=== PATIENT | female | born 1960 | race Caucasian/White ===

== ENCOUNTER 2023-09-10 07:54 | Emergency (ER) | payer OTHER, SELFPAY ==
[2023-09-10] VITALS (7 sets, daily range): BP systolic 120–139; BP diastolic 54–78; PULSE 66–74; RESP 16–20; TEMP 36.5; O2SAT 94–99; BMI 52.9
--- NOTE | ~2023-09-10 | XR_ITS ---
EXAMINATION: XR SHOULDER, RIGHT CLINICAL INFORMATION: Right shoulder pain COMPARISON: None available. TECHNIQUE: AP sitting: AP external rotation and scapular Y views of the right shoulder. FINDINGS: The humeral head appears to be dislocated from the glenoid fossa. No fracture. There is mild degenerative change of the acromioclavicular joint. XR/XR shoulder RT min 2V IMPRESSION: Dislocated right shoulder.
--- NOTE | ~2023-09-10 | XR_ITS ---
STUDY: Right shoulder, right elbow, right wrist INDICATION: Post reduction right shoulder, right elbow and right hand/wrist pain TECHNIQUE: 2 view right shoulder, single view right elbow, 3 view right wrist FINDINGS: Right shoulder: Limited evaluation due to positioning with swelling in place. There is improved alignment of the anterior inferior dislocated right shoulder. Given study limitations, no displaced fracture recognized. Degenerative changes noted about the acromioclavicular joint. Right elbow: 1 single view provided, no fracture or dislocation. Alignment appears to be maintained. Posterior elbow soft tissue prominence is noted. Right wrist: Pisiform bone appears displaced in an ulnar dorsal direct direction. No fracture recognized. Underlying degenerative change first carpometacarpal joint. XR/XR shoulder RT min 2V IMPRESSION: Interval reduction right shoulder dislocation. When feasible, consider complete shoulder series to assess for integrity of the humeral head. No acute bony pathology single view of the right elbow. Findings suspicious for subluxation or dislocation of the pisiform bone. Correlate clinically, consider CT.
--- NOTE | ~2023-09-10 | XR_ITS ---
STUDY: Right shoulder, right elbow, right wrist INDICATION: Post reduction right shoulder, right elbow and right hand/wrist pain TECHNIQUE: 2 view right shoulder, single view right elbow, 3 view right wrist FINDINGS: Right shoulder: Limited evaluation due to positioning with swelling in place. There is improved alignment of the anterior inferior dislocated right shoulder. Given study limitations, no displaced fracture recognized. Degenerative changes noted about the acromioclavicular joint. Right elbow: 1 single view provided, no fracture or dislocation. Alignment appears to be maintained. Posterior elbow soft tissue prominence is noted. Right wrist: Pisiform bone appears displaced in an ulnar dorsal direct direction. No fracture recognized. Underlying degenerative change first carpometacarpal joint. XR/XR hand wrist RT IMPRESSION: Interval reduction right shoulder dislocation. When feasible, consider complete shoulder series to assess for integrity of the humeral head. No acute bony pathology single view of the right elbow. Findings suspicious for subluxation or dislocation of the pisiform bone. Correlate clinically, consider CT.
--- NOTE | ~2023-09-10 | XR_ITS ---
STUDY: Right shoulder, right elbow, right wrist INDICATION: Post reduction right shoulder, right elbow and right hand/wrist pain TECHNIQUE: 2 view right shoulder, single view right elbow, 3 view right wrist FINDINGS: Right shoulder: Limited evaluation due to positioning with swelling in place. There is improved alignment of the anterior inferior dislocated right shoulder. Given study limitations, no displaced fracture recognized. Degenerative changes noted about the acromioclavicular joint. Right elbow: 1 single view provided, no fracture or dislocation. Alignment appears to be maintained. Posterior elbow soft tissue prominence is noted. Right wrist: Pisiform bone appears displaced in an ulnar dorsal direct direction. No fracture recognized. Underlying degenerative change first carpometacarpal joint. XR/XR elbow RT 2V IMPRESSION: Interval reduction right shoulder dislocation. When feasible, consider complete shoulder series to assess for integrity of the humeral head. No acute bony pathology single view of the right elbow. Findings suspicious for subluxation or dislocation of the pisiform bone. Correlate clinically, consider CT.
--- NOTE | 2023-09-10 08:12 | ED.FALL ---
HPI - Fall General Chief Complaint: Fall Stated Complaint: Fall/R arm pain Time Seen by Provider: 09/10/23 08:04 Source: patient and family (daughter ) Mode of arrival: ambulatory Limitations: no limitations History of Present Illness HPI Narrative: 63-year-old female presents status post mechanical fall, reports she tripped on her pants, fell onto her right side right upper extremity. Since then has been having pain and inability to move her right shoulder, elbow hand and wrist. No worse with movement better at rest She states this was strictly a mechanical fall. No preceding symptoms to fall such as chest pain, headache, vision changes, dizziness, shortness of breath. Patient not on blood thinners. Patient denies numbness, tingling. Currently denies headache, vision changes, dizziness, weakness, nausea, vomiting, abdominal pain, chest pain, shortness of breath, numbness and tingling Related Data Previous Rx's Medication Instructions Recorded morphine 15 mg immediate release 15 mg PO Q6H PRN pain 5 days #10 09/10/23 tablet tabs Allergies Allergy/AdvReac Type Severity Reaction Status Date / Time No Known Allergies Allergy Unknown NOT Unverified 03/31/20 15:59 APPLICABLE Review of Systems Review of Systems: Yes all other systems are reviewed and are negative [facility] Past Medical History Attestation statement: The following information was validated with the patient. Source: old records reviewed and nursing notes reviewed Social History Social History Smoked in Last 30 Days: No Use of substances other than those prescribed or required for medical reasons: No Advance Directives: No Advance Directives Information Provided: Yes Physical Exam Vital Signs: Vital Signs: Last Vital Signs Temp 97.7 F 09/10/23 08:04 Pulse 71 09/10/23 11:29 Resp 16 09/10/23 11:29 BP 120/66 09/10/23 11:29 Pulse Ox 98 09/10/23 11:29 O2 Del Method Nasal Cannula 09/10/23 11:29 O2 Flow Rate 2 09/10/23 11:29 Oxygen Flow Rate 2 09/10/23 09:59 BMI result Body Mass Index 52.9 vss Appearance: Alert.? Oriented X3.? No acute distress.? Head: Normocephalic, atraumatic, no step-offs or deformities Eyes: Pupils equal, round and reactive to light.? CVS: Normal heart rate and rhythm.? Pulses normal.? Respiratory: No respiratory distress.? Breath sounds normal.? Abdomen: Soft and nontender.? Skin: Skin warm and dry.? Normal skin color.? Normal skin turgor.? Extremities: No lower extremity edema.? No calf ttp. 5/5 strength to bilateral lower extremities, and L arm. Hard to access strength to RUE. patient holding her right arm abducted to her body in guarded, reports pain with range of motion of right shoulder, right elbow right hand/wrist. No gross deformities. 2+ radial pulses. Full range of motion to all fingers with normal capillary refill less than 2 seconds. Normal handgrip bilaterally. No wrist drop. Neuro: Oriented X 3.? No motor deficit.? No sensory deficit. CN 2-12 intact Course Reevaluation(s) Reevaluation #1: CBC with leukocytosis likely secondary to acute fall/trauma. Unlikely infectious in origin. Chemistry unremarkable. Right shoulder does appear to be dislocated. I did explain this to patient and daughter. Obtained verbal and written consent for moderate sedation/conscious sedation with propofol. Patient remains a candidate. Written consent inpatient chart. Time: 09:44 Reevaluation #2: Chemistry hemolyzed. Paatient w/o other complaints will dc without it low suspicion for acute metabolic derangments. Plan- dc patient home w/ sling and prompt orhto consult. At this time patient to be dc home w/ daughter sating well on home O2, pain well controlled. Educated on worsening sx and when to return. Time: 11:36 Medications Administered Discontinued Medications Generic Name Dose Route Start Last Admin Trade Name Gi PRN Reason Stop Dose Admin Morphine Sulfate 4 mg 09/10/23 09:18 09/10/23 09:40 Morphine Sulfate 4 Mg/Ml Cartridge IVPUSH 09/10/23 09:19 4 mg ONCE ONE Administration Protocol Propofol 200 mg 09/10/23 09:18 09/10/23 10:20 Propofol 200 Mg/20 Ml Vial IVPUSH 09/10/23 09:19 150 mg ONCE ONE Administration Medical Decision Making Medical Decision Making [facility] Narrative: 0816 63 year old female presents s/p fall w/ right arm and shoulder pain [employer]. No head strike or LOC PE patient holding her right arm abducted to her body in guarded, reports pain with range of motion of right shoulder, right elbow right hand/wrist. No gross deformities. 2+ radial pulses. Full range of motion to all fingers with normal capillary refill less than 2 seconds. Normal handgrip bilaterally. No wrist drop. Will rule out fracture dislocations. Unlikely neurovascular compromise, threat to limb. No signs of traumatic injury to head, neck, chest, abdomen or pelvis. Plan- xray Differential Diagnosis Differential Diagnoses: The differential diagnosis associated with the presentation includes Will rule out fracture dislocations. Unlikely neurovascular compromise, threat to limb. No signs of traumatic injury to head, neck, chest, abdomen or pelvis. Admission/Observation Consideration of admission/observation: Escalation of care including admission/observation considered Consult Healthcare Provider Management of the patient was discussed with: Director Of Consulting Services (Attending for conscious sedation ) Lab Data MDM Lab Attestation statement: I reviewed the patient's lab results. 09/10/23 09:36 09/10/23 09:36 Labs: Lab Results 09/10/23 Range/Units 09:36 WBC 12.9 H (4.8-10.8) X10*3/uL RBC 4.93 (4.20-5.50) X10*6/uL Hgb 13.7 (12.0-16.0) g/dl Hct 42.4 (37.0-47.0) % MCV 86.0 (80.0-98.0) fL MCH 27.8 (27.0-33.0) pg MCHC 32.3 (31.0-35.0) g/dl RDW 15.4 (11.0-16.0) % Plt Count 250 (160-400) X10*3/uL MPV 9.8 (9.4-12.3) fL Immature Gran % (Auto) 0.9 H (0.0-0.4) % Neut % (Auto) 80.3 H (45-73) % Lymph % (Auto) 11.7 L (20-40) % Valley % (Auto) 5.6 (2-11) % Eos % (Auto) 1.0 (0-4) % Baso % (Auto) 0.5 (0-2) % Lymph # (Auto) 1.5 (1.2-4.9) X10*3/uL Valley # (Auto) 0.7 (0.1-1.2) X10*3/uL Eos # (Auto) 0.1 (0.0-0.4) X10*3/uL Baso # (Auto) 0.1 (0.0-0.2) X10*3/uL Abs Immat Gran (auto) 0.11 H (0.00-0.03) X10*3/uL Absolute Neuts (auto) 10.4 H (2.0-8.3) x10*3/uL Absolute Nucleated RBC 0.000 (0.0-0.012) X10*3/uL Nucleated RBC % (auto) 0.0 (0.0-0.2) /100WBC PT 12.9 (11.1-13.3) SEC INR 1.1 (0.9-1.1) Specimen Comment DELAY Independent Interpretation I performed an independent interpretation of an: Plain X-Ray (dislocated r shoulder ) Radiology Impression Discussion of test interpretation with radiology: I have reviewed the radiologist's reading. Independent Historian Clinical information obtained from an independent historian. History obtained from or confirmed by: Other (daughter ) Critical Care Time Critical Care Time Critical Care Time: Yes Total Critical Care Time: 45 Attestation: I attest to this time spent taking care of the patient, obtaining history, physical, reviewing labs, imaging, speaking to my attending, speaking to specialist. Discharge Plan Discharge Clinical Impression: Fall Qualifiers: Encounter type: initial encounter Qualified Code(s): W19.XXXA - Unspecified fall, initial encounter Dislocation of shoulder, right, closed Qualifiers: Encounter type: initial encounter Qualified Code(s): S43.004A - Unspecified dislocation of right shoulder joint, initial encounter Patient Disposition: Home, Self-Care Instructions: Shoulder Dislocation (ED), Moderate Sedation (ED), Fall Prevention (ED) Additional Instructions: Take your medications as prescribed. If you were prescribed antibiotics today, it is important that you take your medication to their entirety, do not skip any doses, do not finish them early. Follow-up with your primary care provider this week. Return to the emergency department with new or worsening symptoms. Such as fevers, chills, chest pain, shortness of breath, nausea, vomiting, dizziness, headache, vision changes, lethargy In case of emergency call 911 A narcotic has been sent to your pharmacy please take this as prescribed. Do not take more than the prescribed dose. Narcotic medications can cause addiction. Please do not mix them with alcohol. Do not take them while driving or operating machinery. Do not take them with any other narcotics. Do not share them with friends or family. They can cause constipation. Take them only for severe pain. XR/XR shoulder RT min 2V IMPRESSION: Dislocated right shoulder. FINDINGS: Right shoulder: Limited evaluation due to positioning with swelling in place. There is improved alignment of the anterior inferior dislocated right shoulder. Given study limitations, no displaced fracture recognized. Degenerative changes noted about the acromioclavicular joint. Right elbow: 1 single view provided, no fracture or dislocation. Alignment appears to be maintained. Posterior elbow soft tissue prominence is noted. Right wrist: Pisiform bone appears displaced in an ulnar dorsal direct direction. No fracture recognized. Underlying degenerative change first carpometacarpal joint. Prescriptions: New morphine 15 mg tablet 15 mg PO Q6H PRN (Reason: pain) 5 Days Qty: 10 0RF Rx Instructions: Partial Fill upon patient request. Referrals: [facility] [Provider Group] - 3 days William Felix III, MD [Primary Care Provider] - 2 days Stand Alone Forms: Work/School Release
[2023-09-10] MEDS: Morphine Sulfate 4 MG/ML CARTRIDGE IVPUSH (09:40)
[2023-09-10 09:42] LABS: Basophils Absolute Auto 0.1 X10*3/uL (0.0-0.2); Basophils Percent Auto 0.5 % (0-2); Eosinophils Absolute Auto 0.1 X10*3/uL (0.0-0.4); Hematocrit 42.4 % (37.0-47.0); Hemoglobin 13.7 g/dl (12.0-16.0); Imm Gran Abs Auto 0.11 X10*3/uL (0.00-0.03); Imm Gran Pct Auto 0.9 % (0.0-0.4); Lymphocytes Absolute Auto 1.5 X10*3/uL (1.2-4.9); Lymphocytes Percent Auto 11.7 % (20-40); MANUAL DIFF FLAG NO; Mean Corpuscular HGB Conc 32.3 g/dl (31.0-35.0); Mean Corpuscular Hemoglobin 27.8 pg (27.0-33.0); Mean Platelet Volume 9.8 fL (9.4-12.3); Monocytes Absolute Auto 0.7 X10*3/uL (0.1-1.2); Monocytes Percent Auto 5.6 % (2-11); Neutrophils Absolute Auto 10.4 x10*3/uL (2.0-8.3); Neutrophils Percent Auto 80.3 % (45-73); Platelet Count 250 X10*3/uL (160-400); Red Blood Count 4.93 X10*6/uL (4.20-5.50); Red Cell Distribution Width 15.4 % (11.0-16.0); White Blood Count 12.9 X10*3/uL (4.8-10.8)
[2023-09-10 09:54] LABS: INTERNATIONAL NORM RATIO 1.1 (0.9-1.1); Prothrombin Time 12.9 SEC (11.1-13.3)
[2023-09-10] MEDS: propofoL 200 MG/20 ML VIAL IVPUSH (10:20)
[2023-09-10 11:22] LABS: Delay - Chemistry DELAY
== END 2023-09-10 11:42 | disposition home or self-care (01) ==
PROVIDERS: Physician Assistant; Emergency Provider Emergency Medicine; PCP Internal Medicine
DX: S43.004A Unspecified dislocation of right shoulder joint, initial encounter (principal); S59.901A Unspecified injury of right elbow, initial encounter; M79.641 Pain in right hand; W01.10XA Fall on same level from slipping, tripping and stumbling with subsequent striking against unspecified object, initial encounter; Y93.9 Activity, unspecified; Y92.9 Unspecified place or not applicable; Y99.8 Other external cause status; Z79.899 Other long term (current) drug therapy
CPT/HCPCS: 36415; 73030; 73070; 73110; 73130; 80053; 85025; 85610; 96374; 96375; 99284; J2270; J2704